=== PATIENT | female | born 2000 | race Two or more races ===

== ENCOUNTER 2024-05-07 15:51 | Emergency (ER) | payer MEDICAID, SELFPAY ==
[2024-05-07 15:52] VITALS: BMI 48.5
[2024-05-07 16:02] VITALS: BP 105/59; PULSE 78; RESP 18; TEMP 36.6; O2SAT 99
--- NOTE | 2024-05-07 16:04 | XR_ITS ---
EXAMINATION: Ankle, left 3 views . Technique: Ankle AP, oblique, lateral 3 views Date and time of exam: May 07, 2024 1615 hours INDICATIONS: Left ankle pain beginning 2 days ago FINDINGS: No fracture or dislocation No foreign body No cortical bone destruction IMPRESSION: No fracture or dislocation
--- NOTE | 2024-05-07 16:04 | XR_ITS ---
Examination: Foot, right, 3 views Technique: AP, oblique, lateral views foot, 3 views Date and time of exam: May 07, 2024 1615 hours INDICATIONS: Injury to the foot 3 days ago, foot pain. FINDINGS: No acute fracture No dislocation No foreign body IMPRESSION: No acute fracture
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
== END 2024-05-07 19:00 | disposition home or self-care (01) ==
PROVIDERS: Emergency Provider Emergency Medicine; PCP Physician Assistant
DX: S90.31XA Contusion of right foot, initial encounter (principal); M25.572 Pain in left ankle and joints of left foot; V03.00XA Pedestrian on foot injured in collision with car, pick-up truck or van in nontraffic accident, initial encounter
CPT/HCPCS: 73610; 73630; 99283

== ENCOUNTER 2024-06-18 16:21 | Emergency (ER) | payer MEDICAID, SELFPAY ==
[2024-06-18 16:22] VITALS: BMI 47.6
[2024-06-18 16:30] VITALS: BP 127/97; PULSE 112; RESP 20; TEMP 37.1; O2SAT 95; BMI 47.3
--- NOTE | 2024-06-18 16:36 | EDNOTE_ITS ---
ED Female Urogenital RME/HPI General Chief complaint: Urogenital-Female Stated complaint: Itching and bleeding to vaginal area Time Seen by Provider: 06/18/24 16:25 Arrival date/time: 06/18/24 16:21 24-year-old female presents to the emergency department with complaints of vaginal itching and pain patient reports discharge. Patient reports that she is not sexually active Limitations: no limitations Related Data Home Medications ?Medication ?Instructions ?Recorded ?Confirmed metformin 500 mg tablet 250 tab PO QDAY 12/29/21 Previous Rx's ?Medication ?Instructions ?Recorded acetaminophen 500 mg tablet 1,000 mg (2 x 500 mg) PO Q ID PRN 01/17/22 (Tylenol Extra Strength) fever or pain #30 tabs nitrofurantoin 100 mg PO BID #14 caps 02/10 monohydrate/macrocrystals 100 mg capsule (Macrobid) ondansetron 4 mg disintegrating 4 mg PO Q8H #14 tabs 1 tablet ibuprofen 800 mg tablet 800 mg PO TID PRN pain #30 t abs 03/07/22 ibuprofen 800 mg tablet 800 mg PO TID PRN pain #30 t abs 06/23/22 diphenhydramine HCl 25 mg capsule 25 mg PO .qhs PRN al lergy symptoms 07/05/22 (Allergy Relief (diphenhydramine)) #30 caps fluticasone propionate 50 2 spray intranasal BID #16 g jas 07/05/22 mcg/actuation nasal spray,suspension loratadine 10 mg tablet (Claritin) 10 mg PO QDAY #30 t abs 07/05/22 montelukast 10 mg tablet 10 mg PO QPM #30 tabs acetaminophen 650 mg 650 mg PO Q8H PRN fever or p ain 11/01/22 tablet,extended release #30 tabs ibuprofen 600 mg tablet 600 mg PO Q8H PRN fever or p ain 11/01/22 #30 tabs hydrocodone 5 mg-acetaminophen 325 1 tab PO BID PRN pa in #10 tabs 12/29/22 mg tablet ibuprofen 800 mg tablet 800 mg PO TID PRN pain #30 t abs 05/03/23 naproxen 500 mg tablet 500 mg PO BID PRN pain #30 t abs 05/13/23 albuterol sulfate 90 mcg/actuation 2 puff inhalation Q 6H PRN 06/08/23 aerosol inhaler (Ventolin HFA) shortness of breath or wheezing #8.5 grams promethazine-DM 6.25 mg-15 mg/5 mL 5 ml PO Q6H PRN cou gh #473 mL 06/08/23 oral syrup acetaminophen 500 mg tablet 1,000 mg (2 x 500 mg) PO Q 6H PRN 06/30/23 (Tylenol Extra Strength) fever or pain #30 tabs albuterol sulfate 90 mcg/actuation 2 puff inhalation Q 4H PRN 06/30/23 aerosol inhaler shortness of breath or wheez ing #18 grams ibuprofen 600 mg tablet 600 mg PO Q6H PRN fever or p ain 06/30/23 #30 tabs ondansetron 4 mg disintegrating 4 mg PO Q6H PRN nausea and 06/30/23 tablet vomiting #10 tabs ibuprofen 800 mg tablet (IBU) 800 mg PO Q8H #20 tabs 0 08/31/23 ibuprofen 600 mg tablet 600 mg PO Q8H PRN fever or p ain 12/06/23 #20 tabs acetaminophen 650 mg 650 mg PO Q12H PRN fever or pain 01/04/24 tablet,extended release (Tylenol #14 tabs Arthritis Pain) loratadine 10 mg capsule 10 mg PO QDAY PRN allergy sy mptoms 01/28/24 #30 caps montelukast 10 mg tablet 10 mg PO QDAY #30 tabs 01/27 (Singulair) pseudoephedrine HCl 30 mg tablet 30 mg PO BID #20 tabs 01/28/24 (Sudogest) cephalexin 500 mg capsule 500 mg PO BID 7 days #14 cap s 06/18/24 fluconazole 150 mg tablet 150 mg PO Q3D 2 doses #2 tab s 06/18/24 Allergies Allergy/AdvReac Type Severity Reaction Status Date / Time No Known Allergies Allergy Verified 05/07/24 15:54 Review of Systems Review of Systems Systems Reviewed: All systems reviewed, normal except as documented Constitutional Constitutional: Reports system reviewed and no additional complaints, except as documented, Denies fever(s) and Denies headache(s) Eyes Eyes: Reports system reviewed and no additional complaints, except as documented and Denies blurry vision ENT Ears, Nose, Mouth, and Throat: Reports system reviewed and no additional complaints, except as documented, Denies headache(s), Denies nasal congestion and Denies nasal discharge Cardiovascular Cardiovascular: Reports system reviewed and no additional complaints, except as documented, Denies chest pain and Denies dyspnea Respiratory Respiratory: Reports system reviewed and no additional complaints, except as documented, Denies chest congestion, Denies cough and Denies dyspnea Gastrointestinal Gastrointestinal: Reports system reviewed and no additional complaints, except as documented and Denies abdominal pain Genitourinary Genitourinary: Reports system reviewed and no additional complaints, except as documented, Denies abnormal vaginal bleeding, Denies flank pain, Reports vaginal discharge, Denies vaginal odor and Reports vaginal pruritus Integumentary/Breasts Skin/Breast: Reports system reviewed and no additional complaints, except as documented and Denies rash Neurologic Neurologic: Reports system reviewed and no additional complaints, except as documented, Reports as per HPI and Denies headache(s) Past Medical History Past Medical History NEUROLOGIC: Negative Neurological Disorders CARDIAC: Negative Cardiac Disorders or Congestive Heart Failure RESPIRATORY: Positive Asthma; Negative Chronic Obstructive Pulmonary Disease (COPD) GENITOURINARY: Negative Renal Disease ENDOCRINE: Negative Diabetes Mellitus Type 1 or Diabetes Mellitus Type 2 HEMATOLOGIC: Negative Sickle Cell Disease Social History SMOKING STATUS: Never smoker SUBSTANCE USE: does not use ED Exam General Limitations: Present no limitations General appearance: Present alert and in no apparent distress Head Head exam: Present atraumatic, normocephalic and normal inspection Eye Eye exam: Present normal appearance, PERRL and EOMI; Absent conjunctival injection ENT ENT exam: Present normal exam, normal oropharynx and mucous membranes moist Neck Neck exam: Present normal inspection, full ROM and trachea midline Chest Chest inspection: Present normal inspection and symmetric chest wall rise Respiratory Respiratory exam: Present normal lung sounds bilaterally; Absent respiratory distress, wheezes, stridor, accessory muscle use or prolonged expiratory phase Cardiovascular Cardiovascular exam: Present regular rate, normal rhythm and normal heart sounds Abdominal Exam Abdominal exam: Present soft and normal bowel sounds; Absent distention, tenderness, guarding, rebound or rigidity Abdominal tenderness: Absent RUQ or RLQ Extremities Exam Extremities exam: Present normal inspection and full ROM Back Exam Back exam: Present normal inspection and full ROM Neurological Exam Neurological exam: Present alert, oriented X3 and CN II-XII intact Psychiatric Psychiatric exam: Present normal affect and normal mood Skin Skin exam: Present warm, dry, intact and normal color Course Quality Measures none Vital Signs Vital signs: Vital Signs Temperature 98.8 F 06/18/24 16:30 Pulse Rate 112 H 06/18/24 16:30 Respiratory Rate 20 06/18/24 16:30 Blood Pressure 127/97 H 06/18/24 16:30 Pulse Oximetry (%) 95 06/18/24 16:30 Oxygen Delivery Method Room Air 06/18/24 16:30 O2 saturation 95% room air within normal limits Urogenital - Female MDM Narrative MDM Narrative:: 24-year-old female presents to the emergency department with complaints of vaginal itching and pain patient reports discharge. Patient reports that she is not sexually active Patient is morbidly obese On exam patient does not appear ill or toxic patient does not appear in any acute distress patient hemodynamically stable Symptoms consistent with candidiasis patient be treated as such patient reports she would prefer not to have a vaginal exam Patient discharged home in no distress to follow-up with primary care doctor in the next 24 to 48 hours and for any worsening symptoms to return to the ER immediately Patient data External records reviewed:: [facility] previous records Clinical information provided by:: patient Social determinants that could affect healthcare access:: none Patient has the following chronic illnesses:: None How is presenting disease/condition affected by chronic disease/condition?: no chronic disease Evaluation data The following diagnostics were reviewed and interpreted by me:: other (specify) (N/A) Lab and/or radiology exams considered but not ordered:: Concern and not ordered Interpretation Summary: N/A Medications / Prescriptions Medications or Prescriptions considered but not ordered:: Given Medication administrations:: Given Consultations Consultation(s) initiated? (list below): No Diagnosis Urogenital Female Differential Diagnosis: urinary tract infection and cystitis Most likely diagnosis given after review of the tests above:: Candidiasis Admission Indicated Admission indicated?: not indicated Admission Request Was there a request for admission?: No Disposition Plan Disposition Plan: Discharge Discharge Attestation Discharge Attestation: The patient and all family members were given an opportunity to ask questions and understood the discharge instructions. Discharge instructions specifically effects, indications for sooner follow up or return to the emergency department, and the expected course of current diagnosis. Patient condition: Stable Discharge Plan Plan Patient Disposition: HOME (Self Care) Disposition Comment: Stable Prescriptions/Referrals Prescriptions/Med Rec: New cephalexin 500 mg capsule 500 mg PO BID 7 Days Qty: 14 0RF fluconazole 150 mg tablet 150 mg PO Q3D Qty: 2 0RF No Action acetaminophen [Tylenol Extra Strength] 500 mg tablet 1,000 mg PO QID PRN (Reason: fever or pain) Qty: 30 0RF ibuprofen 800 mg tablet 800 mg PO TID PRN (Reason: pain) Qty: 30 0RF ibuprofen 800 mg tablet 800 mg PO TID PRN (Reason: pain) Qty: 30 0RF ondansetron 4 mg tablet,disintegrating 4 mg PO Q6H PRN (Reason: nausea and vomiting) Qty: 10 0RF ibuprofen 600 mg tablet 600 mg PO Q6H PRN (Reason: fever or pain) Qty: 30 0RF acetaminophen [Tylenol Extra Strength] 500 mg tablet 1,000 mg PO Q6H PRN (Reason: fever or pain) Qty: 30 0RF albuterol sulfate 90 mcg/actuation HFA aerosol inhaler 2 puff inhalation Q4H PRN (Reason: shortness of breath or wheezing) Qty: 18 0RF ibuprofen [IBU] 800 mg tablet 800 mg PO Q8H Qty: 20 0RF acetaminophen [Tylenol Arthritis Pain] 650 mg tablet extended release 650 mg PO Q12H PRN (Reason: fever or pain) Qty: 14 0RF metformin 500 mg tablet 250 tab PO QDAY Patient Comments: 1/2 tablet by mouth once daily WITH MORNING AND EVENING MEALS nitrofurantoin monohyd/m-cryst [Macrobid] 100 mg capsule 100 mg PO BID Qty: 14 0RF Rx Instructions: must administer with a meal/food ondansetron 4 mg tablet,disintegrating 4 mg PO Q8H Qty: 14 0RF diphenhydramine HCl [Allergy Relief(diphenhydramin)] 25 mg capsule 25 mg PO .qhs PRN (Reason: allergy symptoms) Qty: 30 0RF montelukast 10 mg tablet 10 mg PO QPM Qty: 30 0RF fluticasone propionate 50 mcg/actuation spray,suspension 2 spray intranasal BID Qty: 16 0RF Rx Instructions: administer into each nostril loratadine [Claritin] 10 mg tablet 10 mg PO QDAY Qty: 30 0RF acetaminophen 650 mg tablet extended release 650 mg PO Q8H PRN (Reason: fever or pain) Qty: 30 0RF Rx Instructions: swallow whole; do not chew/break/dissolve/open ibuprofen 600 mg tablet 600 mg PO Q8H PRN (Reason: fever or pain) Qty: 30 0RF hydrocodone-acetaminophen 5-325 mg tablet 1 tab PO BID MDD 10 PRN (Reason: pain) Qty: 10 0RF ibuprofen 800 mg tablet 800 mg PO TID PRN (Reason: pain) Qty: 30 0RF naproxen 500 mg tablet 500 mg PO BID PRN (Reason: pain) Qty: 30 0RF promethazine-DM 6.25-15 mg/5 mL syrup 5 ml PO Q6H PRN (Reason: cough) Qty: 473 0RF albuterol sulfate [Ventolin HFA] 90 mcg/actuation HFA aerosol inhaler 2 puff inhalation Q6H PRN (Reason: shortness of breath or wheezing) Qty: 8.5 0RF ibuprofen 600 mg tablet 600 mg PO Q8H PRN (Reason: fever or pain) Qty: 20 0RF pseudoephedrine HCl [Sudogest] 30 mg tablet 30 mg PO BID Qty: 20 0RF loratadine 10 mg capsule 10 mg PO QDAY PRN (Reason: allergy symptoms) Qty: 30 0RF montelukast [Singulair] 10 mg tablet 10 mg PO QDAY Qty: 30 0RF Problem List Clinical Impression: Vulvovaginal candidiasis Patient/Caregiver Discharge Instructions Education Materials: Candidiasis Vaginal Additional Instructions: Please follow up with your primary care doctor in the next 24-48hrs for any worsening symptoms return here immediately Print Language: Frisian Stand Alone Forms: Denisha Award Info., Work/School Release, Patient Portal Info Letter PA/MEDICAL SALES REPRESENTATIVE Supervising Physician PA/MEDICAL SALES REPRESENTATIVE Supervising Physician: dr schwartz
== END 2024-06-18 16:50 | disposition home or self-care (01) ==
PROVIDERS: Emergency Provider Emergency Medicine; PCP Physician Assistant
DX: B37.31 Acute candidiasis of vulva and vagina (principal); E66.01 Morbid (severe) obesity due to excess calories; Z68.42 Body mass index [BMI] 45.0-49.9, adult
CPT/HCPCS: 99281

== ENCOUNTER 2024-10-08 20:51 | Emergency (ER) | payer MEDICAID, SELFPAY ==
[2024-10-08 20:53] VITALS: BMI 44.1
[2024-10-08 22:00] VITALS: BP 110/78; PULSE 82; RESP 16; TEMP 36.6; O2SAT 97
--- NOTE | 2024-10-08 22:07 | EDNOTE_ITS ---
Upper Respiratory Inf. RME/HPI General Chief Complaint: Flu Like Symptoms Stated Complaint: COUGHING SINCE YESTERDAY, SOB, TIRED Time Seen by Provider: 10/08/24 22:05 Arrival date/time: 10/08/24 20:51 24F with history of asthma presents to ED with 2 days of fatigue and cough. Limitations: no limitations Related Data Home Medications ?Medication ?Instructions ?Recorded ?Confirmed metformin 500 mg tablet 250 tab PO QDAY 12/29/21 Previous Rx's ?Medication ?Instructions ?Recorded acetaminophen 500 mg tablet 1,000 mg (2 x 500 mg) PO Q ID PRN 01/17/22 (Tylenol Extra Strength) fever or pain #30 tabs nitrofurantoin 100 mg PO BID #14 caps 02/10 monohydrate/macrocrystals 100 mg capsule (Macrobid) ondansetron 4 mg disintegrating 4 mg PO Q8H #14 tabs 1 tablet ibuprofen 800 mg tablet 800 mg PO TID PRN pain #30 t abs 03/07/22 ibuprofen 800 mg tablet 800 mg PO TID PRN pain #30 t abs 06/23/22 diphenhydramine HCl 25 mg capsule 25 mg PO .qhs PRN al lergy symptoms 07/05/22 (Allergy Relief (diphenhydramine)) #30 caps fluticasone propionate 50 2 spray intranasal BID #16 g jas 07/05/22 mcg/actuation nasal spray,suspension loratadine 10 mg tablet (Claritin) 10 mg PO QDAY #30 t abs 07/05/22 montelukast 10 mg tablet 10 mg PO QPM #30 tabs acetaminophen 650 mg 650 mg PO Q8H PRN fever or p ain 11/01/22 tablet,extended release #30 tabs ibuprofen 600 mg tablet 600 mg PO Q8H PRN fever or p ain 11/01/22 #30 tabs hydrocodone 5 mg-acetaminophen 325 1 tab PO BID PRN pa in #10 tabs 12/29/22 mg tablet ibuprofen 800 mg tablet 800 mg PO TID PRN pain #30 t abs 05/03/23 naproxen 500 mg tablet 500 mg PO BID PRN pain #30 t abs 05/13/23 albuterol sulfate 90 mcg/actuation 2 puff inhalation Q 6H PRN 06/08/23 aerosol inhaler (Ventolin HFA) shortness of breath or wheezing #8.5 grams promethazine-DM 6.25 mg-15 mg/5 mL 5 ml PO Q6H PRN cou gh #473 mL 06/08/23 oral syrup acetaminophen 500 mg tablet 1,000 mg (2 x 500 mg) PO Q 6H PRN 06/30/23 (Tylenol Extra Strength) fever or pain #30 tabs albuterol sulfate 90 mcg/actuation 2 puff inhalation Q 4H PRN 06/30/23 aerosol inhaler shortness of breath or wheez ing #18 grams ibuprofen 600 mg tablet 600 mg PO Q6H PRN fever or p ain 06/30/23 #30 tabs ondansetron 4 mg disintegrating 4 mg PO Q6H PRN nausea and 06/30/23 tablet vomiting #10 tabs ibuprofen 800 mg tablet (IBU) 800 mg PO Q8H #20 tabs 0 08/31/23 ibuprofen 600 mg tablet 600 mg PO Q8H PRN fever or p ain 12/06/23 #20 tabs acetaminophen 650 mg 650 mg PO Q12H PRN fever or pain 01/04/24 tablet,extended release (Tylenol #14 tabs Arthritis Pain) loratadine 10 mg capsule 10 mg PO QDAY PRN allergy sy mptoms 01/28/24 #30 caps montelukast 10 mg tablet 10 mg PO QDAY #30 tabs 01/27 (Singulair) pseudoephedrine HCl 30 mg tablet 30 mg PO BID #20 tabs 01/28/24 (Sudogest) fluconazole 150 mg tablet 150 mg PO Q3D 2 doses #2 tab s 06/18/24 albuterol sulfate 90 mcg/actuation 2 puff inhalation Q 6H PRN 10/08/24 aerosol inhaler (Ventolin HFA) shortness of breath or wheezing #8.5 grams Allergies Allergy/AdvReac Type Severity Reaction Status Date / Time No Known Allergies Allergy Verified 10/08/24 20:54 Review of Systems Review of Systems Systems Reviewed: All systems reviewed, normal except as documented Constitutional Constitutional: Reports system reviewed and no additional complaints, except as documented, Reports as per HPI, Reports fatigue, Denies fever(s) and Denies headache(s) ENT Ears, Nose, Mouth, and Throat: Denies disequilibrium and Denies headache(s) Cardiovascular Cardiovascular: Reports system reviewed and no additional complaints, except as documented, Denies chest pain and Denies dyspnea Respiratory Respiratory: Reports system reviewed and no additional complaints, except as documented, Reports as per HPI, Reports cough and Denies dyspnea Gastrointestinal Gastrointestinal: Reports system reviewed and no additional complaints, except as documented, Denies abdominal pain, Denies nausea and Denies vomiting Neurologic Neurologic: Reports system reviewed and no additional complaints, except as documented, Denies confusion, Denies disequilibrium and Denies headache(s) Psychiatric Psychiatric: Denies confusion Endocrine Endocrine: Reports fatigue Past Medical History Past Medical History NEUROLOGIC: Negative Neurological Disorders CARDIAC: Negative Cardiac Disorders or Congestive Heart Failure RESPIRATORY: Positive Asthma; Negative Chronic Obstructive Pulmonary Disease (COPD) GENITOURINARY: Negative Renal Disease ENDOCRINE: Negative Diabetes Mellitus Type 1 or Diabetes Mellitus Type 2 HEMATOLOGIC: Negative Sickle Cell Disease Social History SMOKING STATUS: Never smoker SUBSTANCE USE: does not use ED Exam General Limitations: Present no limitations General appearance: Present alert and in no apparent distress Head Head exam: Present atraumatic Eye Eye exam: Present normal appearance, PERRL and EOMI ENT ENT exam: Present normal exam, normal oropharynx and mucous membranes moist Neck Neck exam: Present normal inspection, full ROM and trachea midline Chest Chest inspection: Present normal inspection and symmetric chest wall rise Respiratory Respiratory exam: Present normal lung sounds bilaterally and prolonged expiratory phase (mild) Cardiovascular Cardiovascular exam: Present regular rate, normal rhythm and normal heart sounds Abdominal Exam Abdominal exam: Present soft and normal bowel sounds Extremities Exam Extremities exam: Present normal inspection and full ROM Back Exam Back exam: Present normal inspection and full ROM Neurological Exam Neurological exam: Present alert, oriented X3 and CN II-XII intact Psychiatric Psychiatric exam: Present normal affect and normal mood Skin Skin exam: Present warm, dry, intact and normal color Course Quality Measures none Orders Category Date Time Status Bedside Influenza A&B Antigen Test NOW Care 10/08/24 22:05 Active Dexamethasone Inj [Decadron Inj] Med 10/08/24 22:09 Discontinued 10 mg PO X1 ONE Vital Signs Vital signs: Vital Signs Temperature 98 F 10/08/24 22:00 Pulse Rate 82 10/08/24 22:00 Respiratory Rate 16 10/08/24 22:00 Blood Pressure 110/78 10/08/24 22:00 Pulse Oximetry (%) 97 10/08/24 22:00 Oxygen Delivery Method Room Air 10/08/24 22:00 O2 at 97% on RA and WNLs Upper Respiratory Infection MDM Narrative MDM Narrative:: 24F with history of asthma presents to ED with 2 days of fatigue and cough. Physical exam reveals clear oropharynx and lungs. Mildly prolonged expiration. Patient is afebrile, calm, and alert. Likely viral URI causing mild asthma exacerbation. Patient data External records reviewed:: [facility] previous records Clinical information provided by:: patient Social determinants that could affect healthcare access:: none Patient has the following chronic illnesses:: asthma How is presenting disease/condition affected by chronic disease/condition?: exacerbated by Evaluation data The following diagnostics were reviewed and interpreted by me:: lab results Lab and/or radiology exams considered but not ordered:: ordered Interpretation Summary: above Medications / Prescriptions Medications or Prescriptions considered but not ordered:: ordered Medication administrations:: Medication Administration History Discontinued Medications Dexamethasone Sodium Phosphate (Dexamethasone Sod Phos Inj 10 Mg/Ml Vial) 10 mg PO X1 ONE Stop: 10/08/24 22:10 Last Admin: 10/08/24 22:42 Dose: 10 mg Documented By: ROC Comments: po above Consultations Consultation(s) initiated? (list below): No Diagnosis Upper Respiratory Differential Diagnosis: upper respiratory infection, croup, otitis media, sinusitis, viral infection, bronchitis, influenza and pharyngitis Most likely diagnosis given after review of the tests above:: URI Admission Indicated Admission indicated?: not indicated Admission Request Was there a request for admission?: No Disposition Plan Disposition Plan: Discharge Discharge Attestation Discharge Attestation: The patient and all family members were given an opportunity to ask questions and understood the discharge instructions. Discharge instructions specifically effects, indications for sooner follow up or return to the emergency department, and the expected course of current diagnosis. Patient condition: Stable Discharge Plan Plan Patient Disposition: HOME (Self Care) Discharge Disposition comment: Stable Prescriptions/Referrals Prescriptions/Med Rec: New albuterol sulfate [Ventolin HFA] 90 mcg/actuation HFA aerosol inhaler 2 puff inhalation Q6H PRN (Reason: shortness of breath or wheezing) Qty: 8.5 0RF No Action acetaminophen [Tylenol Extra Strength] 500 mg tablet 1,000 mg PO QID PRN (Reason: fever or pain) Qty: 30 0RF ibuprofen 800 mg tablet 800 mg PO TID PRN (Reason: pain) Qty: 30 0RF ibuprofen 800 mg tablet 800 mg PO TID PRN (Reason: pain) Qty: 30 0RF ondansetron 4 mg tablet,disintegrating 4 mg PO Q6H PRN (Reason: nausea and vomiting) Qty: 10 0RF ibuprofen 600 mg tablet 600 mg PO Q6H PRN (Reason: fever or pain) Qty: 30 0RF acetaminophen [Tylenol Extra Strength] 500 mg tablet 1,000 mg PO Q6H PRN (Reason: fever or pain) Qty: 30 0RF albuterol sulfate 90 mcg/actuation HFA aerosol inhaler 2 puff inhalation Q4H PRN (Reason: shortness of breath or wheezing) Qty: 18 0RF ibuprofen [IBU] 800 mg tablet 800 mg PO Q8H Qty: 20 0RF acetaminophen [Tylenol Arthritis Pain] 650 mg tablet extended release 650 mg PO Q12H PRN (Reason: fever or pain) Qty: 14 0RF fluconazole 150 mg tablet 150 mg PO Q3D Qty: 2 0RF metformin 500 mg tablet 250 tab PO QDAY Patient Comments: 1/2 tablet by mouth once daily WITH MORNING AND EVENING MEALS nitrofurantoin monohyd/m-cryst [Macrobid] 100 mg capsule 100 mg PO BID Qty: 14 0RF Rx Instructions: must administer with a meal/food ondansetron 4 mg tablet,disintegrating 4 mg PO Q8H Qty: 14 0RF diphenhydramine HCl [Allergy Relief(diphenhydramin)] 25 mg capsule 25 mg PO .qhs PRN (Reason: allergy symptoms) Qty: 30 0RF montelukast 10 mg tablet 10 mg PO QPM Qty: 30 0RF fluticasone propionate 50 mcg/actuation spray,suspension 2 spray intranasal BID Qty: 16 0RF Rx Instructions: administer into each nostril loratadine [Claritin] 10 mg tablet 10 mg PO QDAY Qty: 30 0RF acetaminophen 650 mg tablet extended release 650 mg PO Q8H PRN (Reason: fever or pain) Qty: 30 0RF Rx Instructions: swallow whole; do not chew/break/dissolve/open ibuprofen 600 mg tablet 600 mg PO Q8H PRN (Reason: fever or pain) Qty: 30 0RF hydrocodone-acetaminophen 5-325 mg tablet 1 tab PO BID MDD 10 PRN (Reason: pain) Qty: 10 0RF ibuprofen 800 mg tablet 800 mg PO TID PRN (Reason: pain) Qty: 30 0RF naproxen 500 mg tablet 500 mg PO BID PRN (Reason: pain) Qty: 30 0RF promethazine-DM 6.25-15 mg/5 mL syrup 5 ml PO Q6H PRN (Reason: cough) Qty: 473 0RF albuterol sulfate [Ventolin HFA] 90 mcg/actuation HFA aerosol inhaler 2 puff inhalation Q6H PRN (Reason: shortness of breath or wheezing) Qty: 8.5 0RF ibuprofen 600 mg tablet 600 mg PO Q8H PRN (Reason: fever or pain) Qty: 20 0RF pseudoephedrine HCl [Sudogest] 30 mg tablet 30 mg PO BID Qty: 20 0RF loratadine 10 mg capsule 10 mg PO QDAY PRN (Reason: allergy symptoms) Qty: 30 0RF montelukast [Singulair] 10 mg tablet 10 mg PO QDAY Qty: 30 0RF Referrals: Janiya Taylor PA-C [Primary Care Provider] - In 1 week Problem List Clinical Impression: Upper respiratory infection Patient/Caregiver Discharge Instructions Education Materials: ED URI, Viral, No Abx (Adult) Additional Instructions: Please follow-up with PCP within 24-48 hours and return immediately if symptoms worsen. Ibuprofen/Tylenol can be used simultaneously for greater fever/pain control. Benadryl is good for cough, congestion, and sleep. Print Language: Mongolian Stand Alone Forms: Patient Portal Info Letter JOSE J/RAMIREZ Supervising Physician JOSE J/RAMIREZ Supervising Physician: Dr. Helms
[2024-10-08] MEDS: DEXAMETHASONE SOD PHOS INJ 10 MG/ML VIAL PO (22:42)
== END 2024-10-08 23:27 | disposition home or self-care (01) ==
PROVIDERS: Emergency Provider Emergency Medicine; PCP Physician Assistant
DX: J06.9 Acute upper respiratory infection, unspecified (principal); J45.909 Unspecified asthma, uncomplicated
CPT/HCPCS: 99283; J1100